=== PATIENT | male | born 1975 | race Two or more races ===

== ENCOUNTER 2022-02-13 09:20 | Outpatient (CLI) | payer OTHER, SELFPAY | END 2022-02-13 09:21 | disposition home or self-care (01) | LOC: OP CLINIC 09:26 | PROVIDERS: PCP Family Medicine; Visit Provider Internal Medicine Gastroenterology | DX: Z12.11 Encounter for screening for malignant neoplasm of colon (principal); K63.5 Polyp of colon | CPT/HCPCS: 45385; 88305; 99153; J2250; J3010 ==